=== PATIENT | male | born 1960 | race Caucasian/White ===

== ENCOUNTER 2024-11-24 18:08 | Inpatient (IN) | payer MEDICAID ==
[~2024-11-24] VITALS: Ht 190.5 cm; Wt 70.3 kg
[~2024-11-24 18:08] MED LIST: ARIP15TA27 PO; ASPI-825 PO; BENZ1TAB70 PO; ESCI20TA87 PO; HALO5TAB23 PO; METF-444 PO; OXCA300T70 PO; TEMA30 PO
[2024-11-24] MEDS ORDERED: ZOLPIDEM TARTRATE 10 MG TABLET PO PRN (18:45)
[2024-11-24 20:20] VITALS: BP 117/71; PULSE 76; RESP 18; TEMP 98.2; O2SAT 99
[2024-11-24 21:30] VITALS: BP 108/75; PULSE 71; RESP 17; TEMP 97; O2SAT 99
[2024-11-25] MEDS ORDERED: BACITRACIN 28 GM OINTMENT TP PRN (09:15)
[2024-11-25] MEDS ORDERED: MAGNESIUM HYDROXIDE SUSPENSION 30 ML UDCUP PO PRN (09:15)
[2024-11-25] MEDS ORDERED: PETROLATUM,WHITE 28 GM JELLY TP PRN (09:15)
[2024-11-25] MEDS ORDERED: IBUPROFEN 600 MG TABLET PO PRN (09:15)
[2024-11-25] MEDS ORDERED: DOCUSATE SODIUM 100 MG CAPSULE PO PRN (09:15)
[2024-11-25] MEDS ORDERED: MAG HYDROX/ALUMINUM HYD/SIMETH ES 30 ML SUSPENSION UDCUP PO PRN (09:15)
[2024-11-25] MEDS ORDERED: BENZOCAINE/MENTHOL [CEPACOL] LOZENGE PO PRN (09:15)
[2024-11-25] MEDS ORDERED: ONDANSETRON 4 MG TABLET PO PRN (09:15)
[2024-11-25] MEDS ORDERED: LOPERAMIDE HCL 2 MG CAPSULE PO PRN (09:15)
[2024-11-25] MEDS ORDERED: OMEPRAZOLE 20 MG CAPSULE PO PRN (09:15)
[2024-11-25 10:45] VITALS: BP 100/63; PULSE 85; RESP 17; TEMP 97.3; O2SAT 97
[2024-11-25] MEDS: DIVALPROEX SODIUM 500 MG ER TABLET PO SCH (16:21)
[2024-11-25 20:22] VITALS: RESP 18
[2024-11-25] MEDS: MIRTAZAPINE 15 MG TABLET PO SCH (20:52)
[2024-11-26 08:37] VITALS: TEMP 97.5
[2024-11-26 20:28] VITALS: BP 101/73; PULSE 77; RESP 18; TEMP 97.7; O2SAT 99
[2024-11-27 08:54] VITALS: RESP 18
[2024-11-27 22:15] VITALS: BP 105/75; PULSE 80; RESP 18; TEMP 97.2; O2SAT 99
[2024-11-28 08:31] VITALS: BP 101/73; PULSE 79; RESP 17; TEMP 97.9; O2SAT 95
[2024-11-28 20:44] VITALS: RESP 18
[2024-11-29 09:15] VITALS: RESP 16
[2024-11-29 15:43] VITALS: RESP 17; O2SAT 97
[2024-11-29] MEDS: ACETAMINOPHEN 325 MG TABLET PO PRN (15:43)
[2024-11-29 16:43] VITALS: RESP 16; O2SAT 97
[2024-11-29 20:24] VITALS: BP 116/81; PULSE 89; RESP 16; TEMP 98.1; O2SAT 97
[2024-11-29 20:26] VITALS: BP 116/81; PULSE 89; RESP 16; TEMP 98.1; O2SAT 97
[2024-11-30 08:32] VITALS: RESP 18
[2024-11-30 20:38] VITALS: BP 109/75; PULSE 68; RESP 18; TEMP 98.2; O2SAT 97
[2024-12-01 09:31] VITALS: BP 102/63; PULSE 62; RESP 18; TEMP 97.3; O2SAT 96
[2024-12-01] MEDS ORDERED: QUET300T2 PO (13:20)
[2024-12-01] MEDS ORDERED: MIRT-89 PO (13:20)
[2024-12-01] MEDS ORDERED: DIVA-153 PO (13:21)
== END 2024-12-01 16:00 | disposition home or self-care (01) | DRG 753 ==
LOC: B2S 18:36
PROVIDERS: ADMIT Psychiatry & Neurology Psychiatry; ATTEND Psychiatry & Neurology Psychiatry
DX: F31.9 Bipolar disorder, unspecified (principal); E11.9 Type 2 diabetes mellitus without complications; R45.851 Suicidal ideations; F41.9 Anxiety disorder, unspecified; G47.00 Insomnia, unspecified; K59.00 Constipation, unspecified; I10 Essential (primary) hypertension; E78.5 Hyperlipidemia, unspecified; K21.9 Gastro-esophageal reflux disease without esophagitis; J44.9 Chronic obstructive pulmonary disease, unspecified; I25.10 Atherosclerotic heart disease of native coronary artery without angina pectoris; Z72.0 Tobacco use
CPT/HCPCS: 80053; 80061; 83036; 84436; 84443; 85025; 87081